=== PATIENT | female | born 1980 ===

== ENCOUNTER 2018-11-19 13:45 | Inpatient (IN) | payer OTHER ==
[~2018-11-19] VITALS: Ht 160 cm; Wt 78.0 kg
[2018-11-23] MEDS ORDERED: OBSTETRIX DHA1 EACH PO (16:26)
== END 2018-11-24 13:59 | disposition home or self-care (01) | DRG 807 ==
LOC: O/R 13:45 → LDR 11-22 17:28 → OB/GYN 11-22 17:58 → O/R 11-24 13:45 → OB/GYN 11-24 13:59
PROVIDERS: ADMIT Obstetrics & Gynecology
PROC: 10E0XZZ Delivery of Products of Conception, External Approach (ICD-10-PCS; principal; 2018-11-22)
PROC: 0HQ9XZZ Repair Perineum Skin, External Approach (ICD-10-PCS; 2018-11-22)
DX: O70.0 First degree perineal laceration during delivery (principal); Z37.0 Single live birth; Z3A.39 39 weeks gestation of pregnancy; O62.3 Precipitate labor

== ENCOUNTER → 2018-11-22 | Emergency (ER) | payer OTHER ==
[~2018-11-22] MED LIST: OBSTETRIX DHA1 EACH PO
== END | disposition still patient (30) ==
LOC: ER 15:49
DX: O47.1 False labor at or after 37 completed weeks of gestation (principal)